=== PATIENT | female | born 1965 | race African-American/Black ===

== ENCOUNTER 2017-04-21 07:29 | Outpatient (CLI) | payer OTHER | END 2017-04-21 07:30 | disposition home or self-care (01) | LOC: BICMAMMO 07:29 | PROVIDERS: ATTEND Obstetrics & Gynecology | DX: Z12.31 Encounter for screening mammogram for malignant neoplasm of breast (principal) | CPT/HCPCS: 77063; 77067; G0202 ==

== ENCOUNTER 2018-05-05 14:03 | Outpatient (CLI) | payer OTHER | END 2018-05-05 14:04 | disposition home or self-care (01) | LOC: BICMAMMO 14:03 | PROVIDERS: ATTEND Obstetrics & Gynecology | DX: Z12.31 Encounter for screening mammogram for malignant neoplasm of breast (principal); Z80.3 Family history of malignant neoplasm of breast | CPT/HCPCS: 77063; 77067 ==

== ENCOUNTER 2018-05-31 14:17 | Outpatient (CLI) | payer OTHER ==
--- NOTE | 2018-05-31 16:05 | CT ---
CT BRAIN NONCONTRAST: DATE: 05/31/18 TIME: 1448 hours HISTORY: 53-year-old female with history of subdural hematoma I62.03, now with headache and confusion. COMPARISON: Noncontrast CT of 06/27/15. FINDINGS: Again noted are the four upper calvarial bur holes, two on each side. On the current CT, it is noted that there is diffusely heterogeneous density of the bilateral parotid glands (the parotid glands were not included in the previous CT images), suggestive of Sjogren's dis ease. The tiny focus of intermediate density material in the left anterior cranial fossa subdural space not ed previously has now resolved. There is no acute intra-axial or extra-axial hemorrhage. No mass effe ct, obstructive hydrocephalus, or midline shift. Again demonstrated is diffuse brain parenchymal volume loss. The bilateral extra-axial spaces, includ ing subdural spaces, are diffusely enlarged. Again noted are the foci of bilateral parietal encephalo malacia and gliosis, moderately large on the left and small to moderate size on the right; also left parasagittal upper frontal, and left medial occipital-posterior temporal regions. Small wedge-shaped lesion in posterior aspect of right cerebellar hemisphere. No interval change other than interval resolution of the small density in the left anterior cranial f tyrone. IMPRESSION: 1. The tiny focus of intermediate density in the left anterior cranial fossa, which may have represe nted a tiny residual focus of subdural blood clot, has now resolved. 2. Currently, there is no evidence of subacute or acute intracranial hemorrhage. 3. Diffuse atrophy and moderate chronic ischemic white matter changes. 4. 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 5. Old upper bur holes. 6. Evidence for Sjogren's disease. Clinical correlation recommended. ANA LUISA Mohr POS: KRISTAN
== END 2018-05-31 14:18 | disposition home or self-care (01) ==
LOC: BICCT 14:17
PROVIDERS: ATTEND Neurological Surgery
DX: I62.03 Nontraumatic chronic subdural hemorrhage (principal); G31.9 Degenerative disease of nervous system, unspecified; I25.2 Old myocardial infarction; M35.00 Sjogren syndrome, unspecified; I67.82 Cerebral ischemia
CPT/HCPCS: 70450

== ENCOUNTER 2019-05-07 12:00 | Outpatient (CLI) | payer OTHER ==
--- NOTE | 2019-05-07 12:57 | MMO ---
Bilateral MAMMO Bilat Screen [facility]. CLINICAL HISTORY: Patient is 54 years old and is seen for screening. VIEWS: The views performed were: . FILMS COMPARED: The present examination has been compared to prior imaging studies performed at [facility] on 03/11/2015, 03/12/2016, 04/21/2017 and 05/05/2018. This study has been interpreted with the assistance of computer-aided detection. MAMMOGRAM FINDINGS: There are scattered fibroglandular densities. There are no suspicious masses, suspicious calcifications, or new areas of architectural distortion. IMPRESSION: THERE IS NO MAMMOGRAPHIC EVIDENCE OF MALIGNANCY. A ROUTINE FOLLOW-UP MAMMOGRAM IN 1 YEAR IS RECOMMENDED. THE RESULTS OF THIS EXAM WERE SENT TO THE PATIENT. ACR BI-RADS Category 1 - Negative MAMMOGRAPHY NOTE: 1. A negative mammogram report should not delay a biopsy if a dominant of clinically suspicious mass is present. 2. Approximately 10% to 15% of breast cancers are not detected by mammography. 3. Adenosis and dense breasts may obscure an underlying neoplasm. Reported by: TIM RUSSO MD Electonically Signed: [id number]
== END 2019-05-07 12:01 | disposition home or self-care (01) ==
LOC: BICMAMMO 12:00
PROVIDERS: ATTEND Obstetrics & Gynecology
DX: Z12.31 Encounter for screening mammogram for malignant neoplasm of breast (principal)
CPT/HCPCS: 77063; 77067

== ENCOUNTER 2020-07-15 13:08 | Outpatient (CLI) | payer BC, OTHER | END 2020-07-15 13:09 | disposition home or self-care (01) | LOC: BICMAMMO 13:08 | PROVIDERS: ATTEND Obstetrics & Gynecology | DX: Z12.31 Encounter for screening mammogram for malignant neoplasm of breast (principal) | CPT/HCPCS: 77063; 77067 ==